=== PATIENT | male | born 1990 ===

== ENCOUNTER 2020-01-10 13:26 | Emergency (ER) | payer OTHER ==
[~2020-01-10] VITALS: Ht 182.9 cm; Wt 108.9 kg
== END 2020-01-10 17:37 | disposition home or self-care (01) ==
LOC: ER 13:26
DX: S20.212A Contusion of left front wall of thorax, initial encounter (principal); S20.211A Contusion of right front wall of thorax, initial encounter; V49.9XXA Car occupant (driver) (passenger) injured in unspecified traffic accident, initial encounter; Y93.89 Activity, other specified; Y92.488 Other paved roadways as the place of occurrence of the external cause; Y99.8 Other external cause status